=== PATIENT | male | born 1965 | race Caucasian/White ===

== ENCOUNTER → 2017-04-29 | Outpatient (CLI) | payer OTHER ==
[~2017-04-29] VITALS: Ht 203.2 cm; Wt 111.1 kg
[~2017-04-29] MED LIST: CATHETER FLUSH 10 ML SYR IV PRN
[2017-04-29 13:27] VITALS: BP 174/78
--- NOTE | 2017-04-30 07:08 | STRESS TEST ---
DATE OF SERVICE: 04/29/2017 PROCEDURE: Resting and post-exercise technetium-99M tetrofosmin SPECT CT imaging. ORDERING PHYSICIAN: Joslyn Chacon APRN CLINICAL DIAGNOSIS: Chest discomfort. Baseline images were carried out after injection of 10.94 mCi of technetium-99M tetrofosmin. Subsequently exercise was carried out on a treadmill. Raghu protocol was employed. He completed three stages approved per Raghu protocol. Heart rate response to exercise was normal. Blood pressure response to exercise was somewhat hypertensive. The test was stopped on account of shortness of breath and fatigue. At peak exercise, there was approximately 2.5 mm horizontal or downsloping ST segment depression. There was no significant arrhythmia. He attained a total of 97% of maximum predicted heart rate and exercised for a total of 7 minutes and 32 seconds in the Raghu protocol. Review of images at rest and following stress indicates a transient inferior perfusion defect. Gated images show inferior hypokinesis. Ejection fraction is calculated to be 37%. Left ventricular end diastolic volume is 172 mL. TID is absent (0.98). CONCLUSIONS: 1. This study indicates inferior ischemia. 2. Inferior hypokinesis. 3. Impairment of global left ventricular systolic function with a calculated ejection fraction of 37%. 4. Cardiomegaly Job ID: [id number] DocumentID: [id number] Dictated Date: 04/29/2017 15:09:06 [place] Vessel Pilot Date: 04/30/2017 04:26:20 Dictated By: TESSA ROD MD, MA, FACP, FACC,
== END ==
LOC: EDBD → CARD 10:42
PROVIDERS: ATTEND Nurse Practitioner Family
DX: R00.2 Palpitations (principal); R07.89 Other chest pain; I51.7 Cardiomegaly; I11.0 Hypertensive heart disease with heart failure
CPT/HCPCS: 78452; 93017; 93306

== ENCOUNTER → 2017-05-29 | Outpatient (CLI) | payer OTHER ==
[~2017-05-29] MED LIST changes: +IOHEXOL 350 MG/ML 150 ML (OMNIPAQUE 350) VIAL IV ONE; +NS 100 ML (IVPB) BAG IV ONE
[2017-05-29 08:57] LABS: ANION GAP 9 MMOL/L (5-14); BLOOD UREA NITROGEN 24 MG/DL (7-18); BUN/CREATININE RATIO 26; CALCIUM 9.2 MG/DL (8.5-10.1); CARBON DIOXIDE 27 MMOL/L (21-32); CHLORIDE 106 MMOL/L (98-107); CREATININE SERUM 0.91 MG/DL (0.60-1.30); GFR ESTIMATED > 60; GLUCOSE 130 MG/DL (70-105); POTASSIUM 4.5 MMOL/L (3.6-5.0); SODIUM 142 MMOL/L (135-145)
--- NOTE | 2017-05-29 11:15 | Diagnostic Imaging Report ---
PROCEDURE: CT angiography of the chest with contrast. TECHNIQUE: Multiple contiguous axial images were obtained through the chest after uneventful bolus administration of intravenous contrast. Reconstructed CTA MIP acquisitions were also performed. INDICATION: Chest pain. COMPARISON: There are no previous CT examinations available for comparison. The myocardial perfusion study performed on 04/29/2017 indicated inferior wall ischemia, cardiomegaly, and a cardiac ejection fraction of 37%. FINDINGS: The heart is enlarged and there are extensive coronary artery calcifications evident. The coronal images also suggest that the aortic root is dilated measuring 4.5 cm. The ascending aorta itself is not aneurysmally dilated measuring 3.6 x 3.7 cm in maximum AP and transverse diameters. The descending thoracic aorta is normal in caliber and there is no sign of a dissection. There is no defect within the pulmonary arteries to indicate a pulmonary embolus. The lungs are generally clear and well aerated. There is no sign of failure, pneumonia, or pleural effusion to suggest an acute abnormality. There is no parenchymal mass identified either. There is no mediastinal or hilar adenopathy. The thyroid gland is generally unremarkable. The bone windows show no evidence of a fracture or destructive lesion. IMPRESSION: 1. There is cardiomegaly and coronary artery disease. The aortic root is also slightly dilated but there is no aneurysmal dilatation of the ascending or descending thoracic aorta and there is no sign of an acute abnormality of the aorta. 2. No other acute cardiopulmonary abnormality is identified either. Dictated by: Dictated on workstation # [id number]
== END ==
LOC: RAD 08:21
PROVIDERS: ATTEND Nurse Practitioner Family
DX: I51.7 Cardiomegaly (principal); I25.10 Atherosclerotic heart disease of native coronary artery without angina pectoris
CPT/HCPCS: 36415; 71275; 80048

== ENCOUNTER 2017-06-03 07:47 | Day surgery (SDC) | payer OTHER ==
[~2017-06-03] VITALS: Ht 198.1 cm; Wt 110.2 kg
[2017-06-03] VITALS (12 sets, daily range): BP systolic 128–203; BP diastolic 81–98
[~2017-06-03 07:47] MED LIST changes: -CATHETER FLUSH 10 ML SYR IV PRN; +HEParin (CATH LAB) 2,000 ML IV ONE; -IOHEXOL 350 MG/ML 150 ML (OMNIPAQUE 350) VIAL IV ONE; -NS 100 ML (IVPB) BAG IV ONE; +NS IV 1000 ML 1,000 ML ONE
--- OUTSIDE RECORDS SUMMARY | 2017-06-03 07:50 | XMS REPORT ---
Author Author KAYLYNN JACKSON Organization [facility] Address [address] [place] [address] Care Team Providers Care Day Care Aide Name Role Phone KAYLYNN JACKSON Unavailable PROBLEMS Type Condition ICD9-CM Code WBL75-CU Code Onset Dates Condition Status SNOMED Code Problem Type 2 diabetes mellitus without complications E11.9 Active 970536715 Problem Benign essential hypertension I10 Active 9045847 Problem Hyperlipemia E78.5 Active 22828712 ALLERGIES Substance Reaction Event Type Date Status N.K.D.A. Unknown Non Drug Allergy Sep, Unknown SOCIAL HISTORY No smoking Hx information available PLAN OF CARE Activity Details Follow Up 6 Months Reason:DM visit VITAL SIGNS Height 78 in 2016-10-08 Weight 251.6 lbs 2016-10-08 Temperature 97.0 degrees Fahrenheit 2016-10-08 Heart Rate 68 bpm 2016-10-08 Respiratory Rate 16 2016-10-08 BMI 29.07 kg/m2 2016-10-08 Blood pressure systolic 138 mmHg 2016-10-08 Blood pressure diastolic 82 mmHg 2016-10-08 MEDICATIONS Medication Instructions Dosage Frequency Start Date End Date Duration Status MetFORMIN HCl ER 500 MG Orally 2 times a day (FOLLOW UP MARCH) 1 tablet Active Lisinopril 5 mg Orally Once a day 1 tablet 24h May, Active Tricor 48 MG Orally Once a day 1 tablet 24h Mar, Active Lovastatin 20 mg Orally Once a day 1 tablet 24h May, Active RESULTS Name Result Date Reference Range A1C (IN HOUSE) 2016-10-08 A1C IN HOUSE 6.9 4.3 - 5.6 % Previous A1c 6.7 Lot [id number] Exp date 06/2018 PROCEDURES Procedure Date Ordered Related Diagnosis Body Site GLYCATED HEMOGLOBIN TEST Oct 08, 2016 Office Visit, Est Pt., Level 3 Oct 08, 2016 IMMUNIZATIONS No Known Immunizations
--- OUTSIDE RECORDS SUMMARY | 2017-06-03 07:50 | XMS REPORT ---
Author KAYLYNN Collins [facility] eClinicalWorks Address Unknown Phone Unavailable Care Team Providers Care Hospital Mortician Name Role Phone KAYLYNN JACKSON CP Unavailable Allergies, Adverse Reactions, Alerts Substance Reaction Event Type N.K.D.A. Info Not Available Non Drug Allergy Problems Problem Type Condition Code Onset Dates Condition Status Problem Hyperlipemia E78.5 Active Problem Benign essential hypertension I10 Active Problem Type 2 diabetes mellitus without complications E11.9 Active Assessment Neck pain M54.2 Active Medications Medication Code System Code Instructions Start Date End Date Status Dosage MetFORMIN HCl ER (MOD) [facility] [address]-51 500 MG Orally 2 times a day January 1 tablet Lovastatin [facility] [address]-33 20 MG Orally Once a day Jun 02, 2014 1 tablet MetFORMIN HCl ER [facility] [id number] 500 MG TAKE ONE TABLET BY MOUTH TWICE DAILY Tricor [facility] [address]-17 48 MG Orally Once a day April 08, 2016 1 tablet Lisinopril [facility] [address]-35 5 MG Orally Once a day Jun 02, 2014 1 tablet Procedures Procedure Coding System Code Date Office Visit, Est Pt., Level 3 CPT-4 23395 Jul 06, 2016 Vital Signs Date/Time: Jul 06, 2016 Cardiac Monitoring Heart Rate 73 bpm Weight 252.6 lbs Height 78 in BMI 29.19 Index Blood Pressure Diastolic 68 mmHg Blood Pressure Systolic 154 mmHg Results No Known Results Summary Purpose eClinicalWorks Submission
--- OUTSIDE RECORDS SUMMARY | 2017-06-03 07:50 | XMS REPORT ---
Author KAYLYNN Collins [facility] eClinicalWorks Address Unknown Phone Unavailable Care Team Providers Care Inventory Transcriber Name Role Phone KAYLYNN JACKSON Unavailable Allergies No Known Allergies Problems Problem Type Condition Code Onset Dates Condition Status Problem Hyperlipemia E78.5 Active Problem Benign essential hypertension I10 Active Problem Type 2 diabetes mellitus without complications E11.9 Active Assessment Hyperlipemia E78.5 Active Medications Medication Code System Code Instructions Start Date End Date Status Dosage Tricor [facility] [address]-33 48 MG Orally Once a day April 08, 2016 1 tablet Results No Known Results Summary Purpose eClinicalWorks Submission
--- OUTSIDE RECORDS SUMMARY | 2017-06-03 07:50 | XMS REPORT ---
Author KAYLYNN Collins [facility] eClinicalWorks Address Unknown Phone Unavailable Care Team Providers Care Stock Digger Name Role Phone KAYLYNN JACKSON Unavailable Allergies No Known Allergies Problems Problem Type Condition Code Onset Dates Condition Status Problem Hyperlipemia E78.5 Active Problem Benign essential hypertension I10 Active Problem Type 2 diabetes mellitus without complications E11.9 Active Medications Medication Code System Code Instructions Start Date End Date Status Dosage Lovastatin [facility] [address]-31 20 mg Orally Once a day Jun 02, 2014 1 tablet Lisinopril [facility] [address]-33 5 mg Orally Once a day Jun 02, 2014 1 tablet Results No Known Results Summary Purpose eClinicalWorks Submission
--- OUTSIDE RECORDS SUMMARY | 2017-06-03 07:50 | XMS REPORT ---
Author KAYLYNN Collins [facility] eClinicalWorks Address Unknown Phone Unavailable Care Team Providers Care Short Filler Bunch Machine Operator Name Role Phone KAYLYNN JACKSON CP Unavailable Allergies, Adverse Reactions, Alerts Substance Reaction Event Type N.K.D.A. Info Not Available Non Drug Allergy Problems Problem Type Condition Code Onset Dates Condition Status Assessment Benign essential hypertension I10 Active Assessment Type 2 diabetes mellitus without complications E11.9 Active Assessment Hyperlipemia E78.5 Active Problem Hyperlipemia E78.5 Active Problem Benign essential hypertension I10 Active Problem Type 2 diabetes mellitus without complications E11.9 Active Problem Diabetes mellitus without mention of complication, type II or unspecified type, not stated as uncontrolled 250.00 Active Problem Overweight 278.02 Active Problem Hyperlipidemia 272.4 Active Problem Essential hypertension, benign 401.1 Active Medications Medication Code System Code Instructions Start Date End Date Status Dosage Lovastatin [facility] [address]-08 20 MG Orally Once a day Jun 02, 2014 1 tablet Lisinopril [facility] [address]-54 2.5 MG Orally Once a day Jun 02, 2014 1 tablet MetFORMIN HCl ER (MOD) [facility] [address]-83 500 MG Orally 2 times a day January 1 tablet Procedures Procedure Coding System Code Date Office Visit, Est Pt., Level 3 CPT-4 86708 Sep 19, 2015 GLYCATED HEMOGLOBIN TEST CPT-4 87951 Sep 19, 2015 Vital Signs Date/Time: Sep 19, 2015 Temperature 98.9 F Weight 259.2 lbs Height 78 in BMI 29.95 Index Blood Pressure Diastolic 90 mmHg Blood Pressure Systolic 152 mmHg Cardiac Monitoring Heart Rate 78 bpm Results Name Result Date Reference Range Unit Abnormality Flag A1C (IN HOUSE) ----A1C IN HOUSE 7.0 [id number] 4.30 - 5.6 % ----Previous A1c 6.2 [id number] ----Lot # [id number] ----Exp date [id number] Summary Purpose eClinicalWorks Submission
--- OUTSIDE RECORDS SUMMARY | 2017-06-03 07:50 | XMS REPORT ---
Author Author ANSELMO MILLS Organization eClinicalWorks Address Unknown Phone Unavailable Care Team Providers Care Straightedge Man Name Role Phone ANSELMO MILLS CP Unavailable Allergies, Adverse Reactions, Alerts Substance Reaction Event Type N.K.D.A. Info Not Available Non Drug Allergy Problems Problem Type Condition Code Onset Dates Condition Status Assessment Chronic periodontitis K05.30 Active Assessment Encounter for dental examination Z01.20 Active Problem Hyperlipemia E78.5 Active Problem Benign [...] Instructions Start Date End Date Status Dosage [facility] [address]-60 5-325 MG Orally every 6 hrs December 07, 2015 1 tablet as needed Procedures Procedure Coding System Code Date EXTRAC ERUPTED TOOTH/EXPOSED ROOT CPT-4 D7140 November 23, 2015 INTRAORL-PERIAPICAL 1 FILM 81178 CPT-4 D0220 December 07, 2015 Vital Signs Date/Time: December 07, 2015 Blood Pressure Diastolic 83 mmHg Blood Pressure Systolic 162 mmHg Results No Known Results Summary Purpose eClinicalWorks Submission
[2017-06-03] MEDS ORDERED: NS IV 1000 ML 1,000 ML IV SCH ×2 (08:00→10:13)
[2017-06-03 08:21] LABS: MEAN PLATELET VOLUME 9.5 FL (7.4-10.4); RED BLOOD COUNT 4.78 10^6/uL (4.35-5.85); RED CELL DISTRIBUTION WIDTH 12.7 % (10.0-14.5); WHITE BLOOD COUNT 7.1 10^3/uL (4.3-11.0)
[2017-06-03] MEDS ORDERED: MIDAZOLAM 5 MG/5 ML (VERSED) VIAL ONE (08:25)
[2017-06-03] MEDS ORDERED: fentaNYL INJECTION 100 MCG/2 ML AMP ONE (08:25)
[2017-06-03] MEDS ORDERED: diphenhydrAMINE 50 MG/ML INJ (BENADRYL) ONE (08:26)
[2017-06-03] MEDS ORDERED: SELE200T11 PO (08:27)
[2017-06-03] MEDS ORDERED: METO-387 PO (08:27)
[2017-06-03] MEDS ORDERED: ASPI-983 PO (08:27)
[2017-06-03] MEDS ORDERED: METF-478 PO (08:27)
[2017-06-03] MEDS ORDERED: LISI10TA2 PO (08:27)
[2017-06-03] MEDS ORDERED: MAGN250T13 PO (08:27)
[2017-06-03] MEDS ORDERED: ACET325T38 PO (08:30)
[2017-06-03] MEDS ORDERED: IBUP-30 PO (08:30)
[2017-06-03 08:31] LABS: PROTHROMBIN TIME PATIENT 12.9 SEC (12.2-14.7)
[2017-06-03 08:40] LABS: ALANINE AMINOTRANSFERASE 29 U/L (0-55); ALBUMIN 4.7 GM/DL (3.2-4.5); ANION GAP 12 MMOL/L (5-14); ASPARTATE AMINO TRANSFERASE 19 U/L (5-34); BLOOD UREA NITROGEN 15 MG/DL (7-18); BUN/CREATININE RATIO 18; CALCIUM 9.2 MG/DL (8.5-10.1); CARBON DIOXIDE 25 MMOL/L (21-32); CHLORIDE 104 MMOL/L (98-107); CHOLESTEROL 159 MG/DL (< 200); CREATININE SERUM 0.85 MG/DL (0.60-1.30); DIRECT LDL 88 MG/DL (1-129); GFR ESTIMATED > 60; GLUCOSE 130 MG/DL (70-105); POTASSIUM 3.8 MMOL/L (3.6-5.0); SODIUM 141 MMOL/L (135-145); TRIGLYCERIDES 211 MG/DL (<150); VLDL CHOLESTEROL 42 MG/DL (5-40)
[2017-06-03] MEDS ORDERED: HEParin 1000 UNIT/ML (10ML VIAL) FOR BOLUS ONE (09:24)
[2017-06-03] MEDS ORDERED: NITROGLYCERIN DRIP 25 MG/D5W 250 ML IV ONE (09:24)
[2017-06-03] MEDS ORDERED: EPTIFIBATIDE BOLUS 20 ML IV ONE (09:26)
[2017-06-03] MEDS ORDERED: ASPIRIN 81 MG CHEW (CHILDREN'S ASA) ONE (09:58)
[2017-06-03] MEDS ORDERED: CLOPIDOGREL 300 MG (PLAVIX) TABLET PO ONE (09:58)
--- NOTE | 2017-06-03 10:13 | Cardiac Procedure Note-CS/ASA ---
Pre-Procedure Note Pre-Op Procedure Note H&P Reviewed The H&P was reviewed, patient examined and no changes noted. Date H&P Reviewed: Jun 03, 2017 Time H&P Reviewed: 09:00 Conscious Sedation Pre-Proced Time Reviewed: 09:00 ASA Class: 3 Airway Mallampati Classification: ([place] appropriate class) I. II. III, IV Lungs Heart ASA score ASA 1: a normal healthy patient ASA 2: a patient with a mild systemic disease (mid diabetes, controlled hypertension, obesity ASA 3: a patient with a severe systemic disease that limits activity (angina , COPD, prior Myocardial infarction) ASA 4: a patient with an incapacitating disease that is a constant threat to life (CHF, renal failure) ASA 5: a moribund patient not expected to survive 24 hrs. (ruptured aneurysm) ASA 6: a declared brain patient whose organs are being harvested. For emergent operations, add the letter E after the classification Grade 2 Sedation Plan: Analgesia, Amnesia, Plan communicated to team members, Discussed options with patient/fam, Discussed risks with patient/fam Note The patient is an appropriate candidate to undergo the planned procedure, sedation, and anesthesia. The patient immediately re-assessed prior to indication. TESSA ROD MD FACP FAC CCDS Jun 03, 2017 10:13
[2017-06-03] MEDS ORDERED: ACETAMINOPHEN 325 MG TABLET/CAPLET (TYLENOL) PO PRN (10:15)
[2017-06-03] MEDS ORDERED: TEMAZEPAM 15 MG (RESTORIL) CAP PO PRN (10:15)
[2017-06-03] MEDS ORDERED: PATIENT MAY USE OWN MEDS, ALL PO SCH (10:15)
--- NOTE | 2017-06-03 10:57 | CARDIAC CATHETERIZATION ---
DATE OF SERVICE: 06/03/2017 CARDIAC CATHETERIZATION AND CORONARY INTERVENTION The patient is a 52-year-old man with multiple coronary artery disease risk factors, chest discomfort, and an abnormal myocardial perfusion imaging study recently which showed inferior ischemia. Cardiac catheterization was carried out today after having obtained informed consent for cardiac catheterization and ad hoc coronary intervention. PROCEDURE: He was brought to the cardiac catheterization laboratory in a fasting state. Right groin was prepared and draped in the usual sterile fashion. Lidocaine 1% was used for local anesthesia. Modified Seldinger technique was used to advance a 5-[place] sheath in the right femoral artery. Angiography of the right femoral artery was carried out through the sheath. Catheters were then advanced for cardiac catheterization over a wire. There was difficulty with wire advancement in the lower abdominal aorta. Once we were able to advance the wire, all catheter exchanges were carried out over an exchange length wire. We carried out right coronary angiography using a JR4 catheter, left coronary angiography using a JL5 catheter and left heart catheterization using a 5-[place] pigtail catheter. The pigtail catheter was then pulled back to the aortic root and aortic root angiography was performed because there appeared to be aortic root enlargement based on coronary angiography. The pigtail was then pulled back to the level of L1 and abdominal aortic angiography was performed because abdominal aortic aneurysm has been suspected due to difficulty with wire advancement initially. The pigtail catheter was then removed. PERCUTANEOUS INTERVENTION TO THE LEFT CIRCUMFLEX ARTERY: Following completion of the diagnostic procedure, percutaneous intervention was carried out to the left circumflex artery which had a long mid vessel lesion, which was up to 90%. We exchanged the sheath over a wire for a 6-[place] sheath. All catheter exchanges and sheath exchanges were carried out over an exchange length wire. We tried multiple guide catheters. Eventually, we used a 6-[place] JL5 catheter to engage the left coronary artery. We advanced a BMW wire across the lesion in the mid left circumflex artery with moderate difficulty and the wire was placed in the distal vessel. Balloon angioplasty was carried out using Emerge 3.0 mm x 20 mm balloon. This reduced the stenosis from 90% to approximately 60%. The balloon was removed. We then advanced an Alpine Xience 3.5 x 38 mm stent. This was carefully positioned to cover the entire lesion and the stent was deployed at 11 atmospheres. Full stent expansion was achieved. Subsequent angiography revealed 0% residual stenosis at the previous site of up to 90% stenosis. Flow throughout the vessel was normal. He tolerated the procedure well. Angioplasty equipment was then removed. Mynx was used to achieve hemostasis following sheath removal. The patient received a double bolus of Integrilin and 6000 units of intravenous heparin during the interventional procedure. HEMODYNAMICS: Left ventricular end-diastolic pressure following coronary angiography was 15 mmHg. There was no significant pressure gradient on pullback across the aortic valve. Ascending aortic pressure was 149/80 with a mean of 110 mmHg. CORONARY ANGIOGRAPHY: Diffuse coronary calcification is present. Left main coronary artery does not exhibit significant obstructive disease. Left anterior descending artery has 30% ostial stenosis and 50% stenosis in its mid vessel at a bifurcation site of the left anterior descending artery with the second diagonal branch. The left circumflex artery has 30% ostial stenosis and has a long stenosis in its mid portion of up to 90%. Prior to this 90% stenosis, successful intervention was carried out. Following deployment of Alpine Xience 3.5 x 38 mm stent, there is no significant residual stenosis and flow throughout the vessel is normal. The right coronary artery is occluded in the distal portion prior to the origin of the posterior descending artery. The distal right coronary artery receives extensive collaterals from the left coronary system. LEFT VENTRICULAR ANGIOGRAPHY: Left ventricular angiography was carried out in the right anterior oblique projection. Left ventricular systolic function is mildly impaired. There is posterobasal hypokinesis. Left ventricular ejection fraction is 45-50%. There does not appear to be significant mitral regurgitation. AORTIC ROOT ANGIOGRAPHY: Aortic root angiography indicated moderate enlargement of the aortic root. There was no significant aortic regurgitation. ABDOMINAL AORTIC ANGIOGRAPHY: Abdominal aortic angiography indicated atherosclerosis and calcification of the abdominal aorta. There is a moderate to large infrarenal abdominal aortic aneurysm. The renal arteries are intact and do not exhibit significant stenosis. CONCLUSIONS: 1. Coronary artery disease as outlined above. This consists of complete distal occlusion of the right coronary artery and severe mid vessel stenosis of the left circumflex. Successful percutaneous intervention was carried out to the mid left circumflex and, following deployment of Alpine Xience 3.5 x 38 mm stent, there is no significant residual stenosis. The left anterior descending artery has moderate mid vessel disease. The right coronary artery is collateralized from the left coronary system. 2. Mild impairment of systolic function with posterobasal hypokinesis and left ventricular ejection fraction 45-50%. 3. No significant mitral regurgitation. 4. Mild elevation left ventricular end-diastolic pressure. 5. Moderate enlargement of the aortic root. 6. Moderate to large infrarenal abdominal aortic aneurysm. DISCUSSION AND RECOMMENDATIONS: Risk factor modification has been reviewed. Avoidance of tobacco is advised. Compliance with medications is advised. He is being hospitalized after today's procedure. We will make a referral to peripheral vascular surgery for abdominal aortic aneurysm repair as an outpatient. Job ID: [id number] DocumentID: [id number] Dictated Date: 06/03/2017 10:25:13 Welfare Service Aide Date: 06/03/2017 10:56:52 Dictated By: TESSA ROD MD, MA, FACP, FACC, MTDD
[2017-06-03] MEDS: inSUlin (REGULAR) HUMAN 1 UNIT/0.01 ML (CHARGE PER UNIT) SC SCH ×3 (11:20→21:45)
[2017-06-03] MEDS ORDERED: SELENOMETHIONINE 200 MCG PO SCH (21:00)
[2017-06-03] MEDS ORDERED: NON-FORMULARY MEDICATION 1 EA EA (Magnesium Oxide (Magnesium) 500 MG) PO SCH (21:00)
[2017-06-03] MEDS ORDERED: MAGNESIUM 250 MG TAB PO SCH (21:00)
[2017-06-03] MEDS ORDERED: MAGNESIUM OXIDE (MAG-OX)400 MG TAB PO SCH (21:00)
[2017-06-03] MEDS ORDERED: SELENIUM 200 MCG PO SCH (21:00)
[2017-06-04 00:56] VITALS: BP 150/76
[2017-06-04 04:12] VITALS: BP 145/78
[2017-06-04 06:09] LABS: MEAN PLATELET VOLUME 9.7 FL (7.4-10.4); RED BLOOD COUNT 4.45 10^6/uL (4.35-5.85); RED CELL DISTRIBUTION WIDTH 12.4 % (10.0-14.5); WHITE BLOOD COUNT 8.3 10^3/uL (4.3-11.0)
[2017-06-04 06:24] LABS: ANION GAP 10 MMOL/L (5-14); BLOOD UREA NITROGEN 14 MG/DL (7-18); BUN/CREATININE RATIO 18; CARBON DIOXIDE 26 MMOL/L (21-32); CHLORIDE 103 MMOL/L (98-107); CREATININE SERUM 0.78 MG/DL (0.60-1.30); GFR ESTIMATED > 60; GLUCOSE 127 MG/DL (70-105); SODIUM 139 MMOL/L (135-145)
[2017-06-04] MEDS: inSUlin (REGULAR) HUMAN 1 UNIT/0.01 ML (CHARGE PER UNIT) SC SCH (06:26)
[2017-06-04 08:00] VITALS: BP 173/88
[2017-06-04] MEDS ORDERED: CLOPIDOGREL 75 MG (PLAVIX) TABLET PO SCH (09:00)
[2017-06-04] MEDS ORDERED: ASPIRIN E.C. 81 MG (ECOTRIN) TAB PO SCH (09:00)
[2017-06-04] MEDS ORDERED: lisINopril 10 MG (PRINIVIL) TAB PO SCH ×2 (09:00)
--- NOTE | 2017-06-04 09:18 | Progress Note-Cardiology ---
Cardiology SOAP Progress Note Subjective: No cp or palp or syncope or shortness of breath. Mild groin bruising; not much discomfort Objective: I&O/Vital Signs Vital Sign - Last 12Hours 06/04/17 06/04/17 06/04/17 00:56 01:00 04:12 Temp 98.0 98.0 Pulse 60 72 58 Resp 18 18 B/P (MAP) 150/76 145/78 Pulse Ox 97 96 O2 Delivery Room Air Room Air Weight (Pounds): 243 Weight (Ounces): 0.0 Weight (Calculated Kilograms): 110.857942 Groin site without hematoma: Yes Bruising: mild bruising Constitutional: AAO x 3 Respiratory: No accessory muscle use, lungs clear to percussion, lungs clear to auscultation Cardiovascular: regular rate-rhythm, S1 and S2, systolic murmur (faint MARQUEZ at card base) Gastrointestional: No tender, soft, No guarding, No rebound, audible bowel sounds Extremities: No clubbing, No cyanosis, No significant edema Neurologic/Psychiatric: oriented x 3, grossly intact, power is 5/5 both on sides Skin: No rash on exposed areas, No ulcerations on exposed areas Results/Procedures: Labs Laboratory Tests 06/03/17 16:47: Glucometer 117H 06/03/17 21:37: Glucometer 143H 06/04/17 05:32: White Blood Count 8.3, Red Blood Count 4.45, Hemoglobin 13.4, Hematocrit 39L, Mean Corpuscular Volume 87, Mean Corpuscular Hemoglobin 30, Mean Corpuscular Hemoglobin Concent 35, Red Cell Distribution Width 12.4, Platelet Count 215, Mean Platelet Volume 9.7, Sodium Level 139, Potassium Level 4.0, Chloride Level 103, Carbon Dioxide Level 26, Anion Gap 10, Blood Urea Nitrogen 14, Creatinine 0.78, Estimat Glomerular Filtration Rate > 60, BUN/Creatinine Ratio 18, Glucose Level 127H, Calcium Level 9.0 Laboratory Tests 06/03/17 08:10 06/04/17 05:32 A/P: Assessment: CAD: Cardiac cath of 06/03/17 showed complete distal occlusion of the right coronary artery and severe mid vessel stenosis of the left circumflex. Successful percutaneous intervention was carried out to the mid left circumflex and, following deployment of Alpine Xience 3.5 x 38 mm stent, there is no significant residual stenosis. The left anterior descending artery has moderate mid vessel disease. The right coronary artery is collateralized from the left coronary system. 2. Mild impairment of systolic function with posterobasal hypokinesis and left ventricular ejection fraction 45-50%. No significant mitral regurgitation. Mild elevation left ventricular end-diastolic pressure. PAD. Aortic angiography of 06/03/17 showed moderate to large infrarenal abdominal aortic aneurysm and moderate enlargement of the aortic root Hypertension Hyperlipidemia DM II Ischemic cm: LVEF 37% on MPI of 04/29/17 and 45-50% on card cath of 06/03/17 Family history of Marfan's syndrome (4 children) Plan: * I had a detailed discussion with him and his and explained our findings and treatments undertaken and further treatment and f/u plan * I have spoken with Dr Urbano at [facility] regarding endograft repair of his AAA. We have asked for an early apptt * We have advised continuing therapy with beta-josie and LOUISA-inhib and aspirin * Metformin is to be held for another 36 hours * Statins and clopidogrel have been added * We discussed the rationale and potential side effects of meds * We have advised compliance with meds and to keep us aware of any changes in his symptomatic status TESSA ROD MD [facility] CCDS Jun 04, 2017 09:18
[2017-06-04] MEDS ORDERED: ASPI-999 PO (09:28)
[2017-06-04] MEDS ORDERED: METO-370 PO (09:28)
[2017-06-04] MEDS ORDERED: LISI-552 PO (09:28)
[2017-06-04] MEDS ORDERED: ATOR40TA70 PO (09:29)
[2017-06-04] MEDS ORDERED: CLOP75TA69 PO (09:29)
--- NOTE | 2017-06-04 09:31 | Discharge Inst-Post CATH ---
Discharge Inst-CATH Post Cardiac Cath D/C Inst Follow Up/Plan F/u with Dr Alegre in 1-[address] Urbano at [facility] for AAA repair CARDIAC CATH DISCHARGE INSTRUCTIONS *Hold Metformin for 48 hours post heart cath. ACTIVITY * Go Home directly and rest. * Limit activity of the leg (or wrist if it was used) for 7 days including aerobics, swimming, jogging, bicycling, etc. * Restrict stair-climbing for 7 days if possible, if not, climb up with your non -cath leg, then bring together on the same step. * Avoid lifting, pushing, pulling or excessive movement of the affected extremity for 7 days. * Customary sexual activity may be resumed after 2 days-use caution not to use a position that strains or causes pain to the affected extremity. * No driving for 24 hours. * NO SMOKING. * Avoid straining for bowel movements for 7 days. * Gentle walking on level ground is allowed. * Returning to work will depend on the type of procedure and the results. Your doctor will discuss this with you. CALL YOUR DOCTOR FOR ANY OF THE FOLLOWING: *If bleeding from the puncture site occurs- Apply gentle pressure to site with clean cloth and call your doctor or EMS. * If a knot or lump forms under the skin, increases in size, or causes pain. * If bruising appears to be worsening or moving further down your leg instead of disappearing. * Temperature above 101 F. CARE OF YOUR GROIN INCISION; * Bruising or purple discoloration of the skin near the puncture site is common. * You may shower only, no bathtub bathing for 5 days. Be careful to avoid slipping as your leg may feel stiff. * If a closure device was used on your femoral artery, please see the attached guide regarding care of the device and your leg. * REMOVE the dressing from your groin the next day after your procedure in the shower. CARE OF YOUR WRIST INCISION; * Bruising or purple discoloration of the skin near the puncture site is common. * You may shower. * DO NOT submerge wrist. * Remove dressing in 24 hours. TESSA ALEGRE MD [facility] CCDS Jun 04, 2017 09:31
--- NOTE | 2017-06-04 09:32 | Discharge Inst-Cardiology ---
Discharge Inst-Cardiac Discharge Medications New Medications: Aspirin (Aspirin) 81 Mg Tab.chew 81 MG PO DAILY for 90 Days, #90 TAB 3 Refills Atorvastatin Calcium (Atorvastatin Calcium) 40 Mg Tablet 40 MG PO HS, #90 TAB 3 Refills Clopidogrel Bisulfate (Plavix) 75 Mg Tablet 75 MG PO DAILY, #90 TAB 3 Refills Lisinopril (Lisinopril) 20 Mg Tablet 20 MG PO DAILY, #90 TAB 3 Refills Metoprolol Succinate (Metoprolol Succinate) 50 Mg Tab.er.24h 50 MG PO DAILY, #90 TAB 3 Refills Continued Medications: Acetaminophen (Tylenol) 325 Mg Tablet 650 MG PO Q6H PRN for PAIN-MILD, TAB Magnesium Oxide (Magnesium) 250 Mg Tablet 500 MG PO HS, TAB TAKES 2 (250MG) TABLETS Metformin HCl (Metformin HCl ER) 500 Mg Tab.er.24 500 MG PO BID, TAB Selenomethionine (Selenium) 200 Mcg Tablet 200 MCG PO HS, TAB Discontinued Medications: Aspirin (Aspirin EC) 81 Mg Tablet.dr 81 MG PO HS, TAB Ibuprofen (Advil) 200 Mg Tablet 400-600 MG PO Q6H PRN for PAIN-MILD, TAB Lisinopril (Lisinopril) 10 Mg Tablet 10 MG PO DAILY, TAB Metoprolol Succinate (Metoprolol Succinate) 25 Mg Tab.er.24h 25 MG PO DAILY, TAB Patient Instructions Patient Instructions: Hold METFORMIN until tomorrow evening TESSA ROD MD FACP FAC CCDS Jun 04, 2017 09:32
[2017-06-04 10:49] VITALS: BP 173/88
== END 2017-06-04 10:30 ==
LOC: CATH 07:47 → ICU 10:30 → CATH 10:30
PROVIDERS: ATTEND Internal Medicine Cardiovascular Disease
DX: I25.10 Atherosclerotic heart disease of native coronary artery without angina pectoris (principal); I25.84 Coronary atherosclerosis due to calcified coronary lesion; I25.82 Chronic total occlusion of coronary artery; I70.0 Atherosclerosis of aorta; I71.4 Abdominal aortic aneurysm, without rupture; E11.9 Type 2 diabetes mellitus without complications; I10 Essential (primary) hypertension; E78.5 Hyperlipidemia, unspecified; Z79.84 Long term (current) use of oral hypoglycemic drugs; Z79.899 Other long term (current) drug therapy
CPT/HCPCS: 36415; 75625; 80048; 80053; 80061; 82962; 85027; 85610; 85730; 87081; 93005; 93458; 93567

== ENCOUNTER → 2017-08-04 | Outpatient (CLI) | payer OTHER ==
[~2017-08-04] MED LIST changes: +ACET325T38 PO; +ASPI-983 PO; +ASPI-999 PO; +ATOR40TA70 PO; +CATHETER FLUSH 10 ML SYR IV PRN; +CLOP75TA69 PO; -HEParin (CATH LAB) 2,000 ML IV ONE; +IBUP-30 PO; +IOHEXOL 350 MG/ML 100 ML (OMNIPAQUE 350) VIAL IV ONE; +LISI-552 PO; +LISI10TA2 PO; +MAGN250T13 PO; +METF-478 PO; +METO-270 PO; +METO-272 PO; +NS 100 ML (IVPB) BAG IV ONE; -NS IV 1000 ML 1,000 ML ONE; +SELE200T11 PO
--- NOTE | 2017-08-04 12:13 | Diagnostic Imaging Report ---
PROCEDURE: CT angiography of the abdomen with and without contrast. TECHNIQUE: Multiple contiguous axial images were obtained through the abdomen and pelvis after administration of intravenous contrast. MIP reconstructions were made. INDICATION: Abdominal aortic aneurysm followup after repair. 80 mL of Omnipaque 350 is administered intravenously. FINDINGS: The lung bases appear clear. The liver, the gallbladder, the spleen, the adrenals, and the pancreas appear unremarkable. The kidneys have symmetric enhancement and contrast excretion. No hydronephrosis. There are two renal arteries in the right side which appear patent. The left side demonstrates a main renal artery and two accessory renal arteries, all appear patent. The SMA demonstrates a 40% proximal stenosis from a soft plaque. There is ectasia of the mid SMA with maximum caliber of the vessel of 1.2 cm. The celiac trunk is patent. There is an abdominal aortic aneurysm with maximum caliber of 5.4 cm. No prior studies are available for comparison. There is an endovascular repair with an aortobiiliac bifurcating graft seen. There is contrast opacification of the upper aspect of the aneurysm sac which is close to the location of the DIOGENES which may suggest a type II endoleak. There is suggestion of moderate stenosis in the right iliac limb of the graft. The unenhanced phase demonstrates no kidney stones. No para-aortic significantly enlarged lymph nodes or masses seen. The osseous structures demonstrate mild degenerative changes in the lumbar spine. IMPRESSION: 1. A 5.4 cm infrarenal abdominal aortic aneurysm with endovascular repair using a bifurcating aortoiliac stent graft. 2. There is an endoleak along the upper aspect of the aneurysm sac adjacent to the location of the DIOGENES, which may suggest a type II endoleak. 3. Suggestion of moderate stenosis in the lumen of the right iliac limb of the graft. Dictated by: Dictated on workstation # [id number]
== END ==
LOC: RAD 09:03
PROVIDERS: ATTEND Nurse Practitioner
DX: I71.4 Abdominal aortic aneurysm, without rupture (principal); Z95.828 Presence of other vascular implants and grafts; Z98.890 Other specified postprocedural states
CPT/HCPCS: 74175

== ENCOUNTER → 2017-12-15 | Outpatient (CLI) | payer SELFPAY ==
[~2017-12-15] MED LIST changes: -CATHETER FLUSH 10 ML SYR IV PRN; -IOHEXOL 350 MG/ML 100 ML (OMNIPAQUE 350) VIAL IV ONE; -METO-270 PO; -METO-272 PO; +METO-370 PO; +METO-387 PO; -NS 100 ML (IVPB) BAG IV ONE
== END ==
LOC: CARD 09:50
PROVIDERS: ATTEND Nurse Practitioner Family
DX: I25.5 Ischemic cardiomyopathy (principal); I08.0 Rheumatic disorders of both mitral and aortic valves
CPT/HCPCS: 93306

== ENCOUNTER → 2018-01-26 | Outpatient (CLI) | payer OTHER ==
[~2018-01-26] MED LIST changes: +CATHETER FLUSH 10 ML SYR IV PRN; +IOHEXOL 350 MG/ML 100 ML (OMNIPAQUE 350) VIAL IV ONE; +NS 250 ML (IVPB) BAG IV ONE
[2018-01-26 09:47] LABS: CREATININE SERUM 0.81 MG/DL (0.60-1.30); GFR ESTIMATED > 60
--- NOTE | 2018-01-26 12:54 | Diagnostic Imaging Report ---
PROCEDURE: CT angiography of the abdomen with and without contrast. TECHNIQUE: Multiple contiguous axial images were obtained through the abdomen and pelvis after administration of intravenous contrast. MIP reconstructions were made. INDICATION: Aortic stent graft. FINDINGS: The previous CTA abdomen exam of 08/04/2017 noted an infrarenal aneurysm of the abdominal aorta with an aortic stent graft in place. There was a small endoleak along the anterior aspect of the graft. On this exam, the graft is again evident. The graft is stable in position, and the graft is patent. The small endoleak noted on the prior exam is still evident although not nearly as conspicuous as on the prior study. The [place] aneurysm of the aorta now measures 5.0 x 5.5 cm in maximum transverse and AP diameters as opposed to 4.9 x 5.4 CM on the prior study. There is no acute abnormality of the aorta. The previous exam also suggested moderate stenosis of the origin of the right iliac limb of the graft. That finding is again evident on today's study and does not seem to have changed significantly. The left iliac limb also seems stable. The remainder of the abdomen is stable when compared to the prior exam. No new abnormality has developed. The liver is mildly enlarged measuring 20.8 cm in maximum length. There is no focal mass involving the liver. The spleen, pancreas, adrenals, gallbladder, inferior vena cava, and kidneys show no sign of an acute abnormality. The nonobstructive calculi within the kidneys seen on the prior study are not well visualized on this exam. The stomach is not well distended and consequently difficult to assess. The lung bases are clear. The bone windows show no evidence for a fracture or for a destructive lesion. IMPRESSION: 1. The aortic stent graft seen on the prior exam remains in good position. The graft is patent. The small endoleak along the anterior aspect of the graft seen previously is again visualized, although the endoleak does not seem nearly as conspicuous as on the prior exam. There is also persistent narrowing of the right common iliac limb. There is no acute abnormality of the aorta. 2. The overall appearance of the abdomen has not changed significantly since the prior exam as well. There is no acute abnormality identified.. Dictated by: Dictated on workstation # [id number]
== END ==
LOC: RAD 09:10
PROVIDERS: ATTEND Nurse Practitioner
DX: I71.4 Abdominal aortic aneurysm, without rupture (principal); Z95.828 Presence of other vascular implants and grafts
CPT/HCPCS: 36415; 74175; 82565; 84520

== ENCOUNTER → 2018-08-25 | Outpatient (CLI) | payer OTHER ==
[~2018-08-25] MED LIST changes: -CATHETER FLUSH 10 ML SYR IV PRN; +RECEIVED CONTRAST (Hold Metformin) IV SCH
--- NOTE | 2018-08-25 12:56 | Diagnostic Imaging Report ---
INDICATION: Abdominal aortic aneurysm and stent graft. COMPARISON: 01/26/2018. TECHNIQUE: Pre-arterial phase dynamic and delayed portovenous phase postcontrast enhanced abdominal/pelvic CT was performed with 3D reconstructions. The comparison study was performed in a similar fashion. FINDINGS: A patent bifurcated stent graft is in stable alignment. The infrarenal aneurysmal sac peripherally calcified measures 5.4 x 5.1 cm today, previously 5.5 x 5.0 cm, unchanged. There is no evidence for endoleak and no aneurysmal sac rupture. No blake-sac inflammatory process. There are no findings of end organ ischemia. There is no ascites, abscess, hematoma, or fluid collection. No bowel, biliary, or urinary tract obstruction. No adenopathy or mass. The solid and hollow viscera are nonacute and stable. IMPRESSION: Patent stent graft device with no endoleak or aneurysmal rupture. Stable sac size. No adverse development or acute finding. Dictated by: Dictated on workstation # [id number]
== END ==
LOC: RAD 09:39
PROVIDERS: ATTEND Thoracic Surgery (Cardiothoracic Vascular Surgery)
DX: I71.4 Abdominal aortic aneurysm, without rupture (principal); Z95.828 Presence of other vascular implants and grafts
CPT/HCPCS: 74174

== ENCOUNTER → 2019-08-30 | Outpatient (CLI) | payer SELFPAY ==
[~2019-08-30] MED LIST changes: +HOLD METFORMIN - RECEIVED CONTRAST 20 ML VIAL IV SCH; -METO-370 PO; -METO-387 PO; +METO50TA7 PO; +MTP25TSR PO; +NS 100 ML (IVPB) BAG IV ONE; -NS 250 ML (IVPB) BAG IV ONE; -RECEIVED CONTRAST (Hold Metformin) IV SCH
--- NOTE | 2019-08-30 12:47 | Diagnostic Imaging Report ---
EXAMINATION: CT angiography of the abdomen. TECHNIQUE: After intravenous administration of contrast, thin section axial CT angiography of the abdomen and were obtained. 3D MIP reformats were provided. All CT scans use one or more of the following dose optimizing techniques: automated exposure control, MA and/or KvP adjustment based on a patient size and exam type, or iterative reconstruction. HISTORY: Abdominal aortic aneurysm COMPARISON: 08/25/2018 FINDINGS: There are postsurgical changes of endovascular repair of abdominal aortic aneurysm. The maximal size of the excluded sac is 5.7 x 4.2 cm. This is unchanged from prior exam. The proximal attachment site is just below the renal arteries and the distal attachment sites are in the common iliac arteries. There is a blush of contrast at the proximal end of the stent graft within the excluded aneurysm sac (series 3, image 88). This is near the origin of the inferior mesenteric artery which is opacified by contrast but arises from the excluded sac. Findings suggestive of a type II endoleak arising from the inferior mesenteric artery. Limited views of the lower thorax are unremarkable. The liver is normal without focal lesion. There is no biliary ductal dilation. Gallbladder is normal. Pancreas is normal. Spleen is normal. Adrenal glands are normal. The kidneys are normal. There is no hydronephrosis. Visualized bowel is normal in caliber without obstruction or inflammation. No free fluid or air. No abdominal lymphadenopathy. There are no suspicious osseus lesions. IMPRESSION: 1. Stable size of the excluded aneurysm sac status post endovascular repair of the abdominal aorta with a new blush of contrast near the origin of the inferior mesenteric artery suggestive of a type II endoleak from this vessel. Dictated by: Dictated on workstation # [id number]
== END ==
LOC: RAD 09:38
PROVIDERS: ATTEND Nurse Practitioner
DX: I71.4 Abdominal aortic aneurysm, without rupture (principal)
CPT/HCPCS: 36415; 74175; 82565

== ENCOUNTER → 2019-11-02 | Outpatient (CLI) | payer SELFPAY ==
[~2019-11-02] VITALS: Ht 197 cm; Wt 108.0 kg
[~2019-11-02] MED LIST changes: -HOLD METFORMIN - RECEIVED CONTRAST 20 ML VIAL IV SCH; -IOHEXOL 350 MG/ML 100 ML (OMNIPAQUE 350) VIAL IV ONE; -NS 100 ML (IVPB) BAG IV ONE; +REGADENOSON 0.4 MG/5 ML SYR (LEXISCAN) IV ONE
[2019-11-02] MEDS: CATHETER FLUSH 10 ML SYR IV PRN ×2 (11:20→12:59)
[2019-11-02 12:58] VITALS: BP 149/88
--- NOTE | 2019-11-02 15:18 | Diagnostic Imaging Report ---
PROCEDURE: US carotid duplex, bilateral. TECHNIQUE: Multiple real-time grayscale images were obtained over the carotid arteries in various projections, bilaterally. Additional spectral analysis and color Doppler duplex images were also obtained. INDICATION: Diabetes and hypertension. Parameters based on the consensus panel Patel-Scale and Doppler ultrasound criteria published July 2003, Radiology, Volume 229. DOPPLER (peak systolic velocity M/S Right Left CCA .74 .82 ICA Proximal .78 .66 ICA Mid .91 .77 ICA Distal .97 .82 RATIO 1.3 1.0 ECA .95 .62 VERT .58 .56 FINDINGS: There are no focally elevated velocities in either internal carotid artery. The ICA/CCA ratios are within normal limits, bilaterally. There is antegrade flow in the vertebral arteries, bilaterally. Grayscale images demonstrate minimal carotid plaque, bilaterally. IMPRESSION: Minimal bilateral carotid plaque however spectral analysis shows no evidence of a hemodynamically significant stenosis in either internal carotid artery. Dictated by: Dictated on workstation # [id number]
== END ==
LOC: CARD 10:27
PROVIDERS: ATTEND Nurse Practitioner Family
DX: I08.0 Rheumatic disorders of both mitral and aortic valves (principal); I11.9 Hypertensive heart disease without heart failure; E11.9 Type 2 diabetes mellitus without complications; I71.3 Abdominal aortic aneurysm, ruptured
CPT/HCPCS: 78452; 93017; 93306; 93880

== ENCOUNTER 2019-11-23 08:16 | Day surgery (SDC) | payer SELFPAY ==
[2019-11-23] VITALS (9 sets, daily range): BP systolic 106–159; BP diastolic 69–90
[~2019-11-23] VITALS: Ht 196 cm; Wt 113.0 kg
[~2019-11-23 08:16] MED LIST changes: +HEParin (CATH LAB) 2,000 ML IV ONE; +LIDOCAINE 1% INJ 20 ML 20 ML VIAL ONE; +NS IV 1000 ML 1,000 ML ONE; -REGADENOSON 0.4 MG/5 ML SYR (LEXISCAN) IV ONE
[2019-11-23] MEDS ORDERED: NS IV 1000 ML 1,000 ML IV SCH ×2 (08:30→11:28)
[2019-11-23 08:51] LABS: HEMOGLOBIN 14.2 G/DL (13.3-17.7); MEAN PLATELET VOLUME 8.9 FL (7.4-10.4); RED CELL DISTRIBUTION WIDTH 12.7 % (10.0-14.5); WHITE BLOOD COUNT 8.3 10^3/uL (4.3-11.0)
[2019-11-23] MEDS ORDERED: ASPI-983 PO (08:52)
[2019-11-23] MEDS ORDERED: FENO54TA PO (08:52)
[2019-11-23] MEDS ORDERED: METO50TA7 PO (08:52)
[2019-11-23] MEDS ORDERED: LISI1TAB25 PO (08:52)
[2019-11-23] MEDS ORDERED: CHOL200078 PO (08:55)
[2019-11-23] MEDS ORDERED: MELA5TAB21 PO (08:55)
[2019-11-23 09:09] LABS: PROTHROMBIN TIME PATIENT 13.1 SEC (12.2-14.7)
[2019-11-23 09:18] LABS: ALANINE AMINOTRANSFERASE 28 U/L (0-55); ALKALINE PHOSPHATASE 63 U/L (40-136); BILIRUBIN,TOTAL 0.9 MG/DL (0.1-1.0); BUN/CREATININE RATIO 16; CALCIUM 10.1 MG/DL (8.5-10.1); CARBON DIOXIDE 27 MMOL/L (21-32); CHLORIDE 103 MMOL/L (98-107); CHOLESTEROL 229 MG/DL (< 200); CREATININE SERUM 0.95 MG/DL (0.60-1.30); GFR ESTIMATED > 60; GLUCOSE 132 MG/DL (70-105); HDL CHOLESTEROL 35 MG/DL (40-60); POTASSIUM 3.8 MMOL/L (3.6-5.0); SODIUM 141 MMOL/L (135-145); TOTAL PROTEIN 8.4 GM/DL (6.4-8.2); TRIGLYCERIDES 286 MG/DL (<150); VLDL CHOLESTEROL 57 MG/DL (5-40)
[2019-11-23] MEDS ORDERED: fentaNYL INJECTION 100 MCG/2 ML AMP ONE (10:32)
[2019-11-23] MEDS ORDERED: MIDAZOLAM 5 MG/5 ML (VERSED) VIAL ONE (10:32)
[2019-11-23] MEDS ORDERED: HEParin 1000 UNIT/ML (10ML VIAL) FOR BOLUS ONE (11:08)
[2019-11-23] MEDS ORDERED: EPTIFIBATIDE BOLUS 0 ML IV ONE (11:09)
--- NOTE | 2019-11-23 11:28 | Cardiac Procedure Note-CS/ASA ---
Pre-Procedure Note Pre-Op Procedure Note H&P Reviewed The H&P was reviewed, patient examined and no changes noted. Date H&P Reviewed: Nov 23, 2019 Time H&P Reviewed: 10:30 Conscious Sedation Pre-Proced Time 10:30 ASA Score 3 For ASA 3 and 4: Consider anesthesia and medical clearance. Also, for patients with a history of failed moderate sedation consider anesthesia. Airway Lungs Heart ASA score ASA 1: a normal healthy patient ASA 2: a patient with a mild systemic disease (mid diabetes, controlled hypertension, obesity ASA 3: a patient with a severe systemic disease that limits activity (angina, COPD, prior Myocardial infarction) ASA 4: a patient with an incapacitating disease that is a constant threat to life (CHF, renal failure) ASA 5: a moribund patient not expected to survive 24 hrs. (ruptured aneurysm) ASA 6: a declared brain- patient whose organs are being harvested. For emergent operations, add the letter E after the classification Mallampati Classification Grade 2 Sedation Plan Analgesia, Amnesia, Plan communicated to team members, Discussed options with patient/fam, Discussed risks with patient/fam The patient is an appropriate candidate to undergo the planned procedure, sedation, and anesthesia. The patient immediately re-assessed prior to indication. TESSA ROD MD FACP FAC CCDS Nov 23, 2019 11:28
[2019-11-23] MEDS ORDERED: PATIENT MAY USE OWN MEDS, ALL PO SCH (11:30)
--- NOTE | 2019-11-23 11:36 | Discharge Inst-Post CATH ---
Discharge Inst-CATH/EP Post Cardiac Cath/EP D/C Inst Follow Up/Plan F/u with Dr Alegre in 3-4 weeks ACTIVITY * Go Home directly and rest. * Limit activity of the leg (or wrist if it was used) for 7 days including aerobics, swimming, jogging, bicycling, etc. * Restrict stair-climbing for 7 days if possible, if not, climb up with your non-cath leg, then bring together on the same step. * Avoid lifting, pushing, pulling or excessive movement of the affected extremity for 7 days. * Customary sexual activity may be resumed after 2 days-use caution not to use a position that strains or causes pain to the affected extremity. * No driving for 24 hours. * NO SMOKING. * Avoid straining for bowel movements for 7 days. * Gentle walking on level ground is allowed. * Returning to work will depend on the type of procedure and the results. Your doctor will discuss this with you. CALL YOUR DOCTOR FOR ANY OF THE FOLLOWING: *If bleeding from the puncture site occurs- Apply gentle pressure to site with clean cloth and call your doctor or EMS. * If a knot or lump forms under the skin, increases in size, or causes pain. * If bruising appears to be worsening or moving further down your leg instead of disappearing. * Temperature above 101 F. CARE OF YOUR GROIN INCISION; * Bruising or purple discoloration of the skin near the puncture site is common. * You may shower only, no bathtub bathing for 5 days. Be careful to avoid slipping as your leg may feel stiff. * If a closure device was used on your femoral artery, please see the attached guide regarding care of the device and your leg. * Leave dressing on FOR 24 hours. CARE OF YOUR WRIST INCISION; * Bruising or purple discoloration of the skin near the puncture site is common. * You may shower. * DO NOT submerge wrist. * Leave dressing on FOR 24 hours. TESSA ALEGRE MD FACP FAC CCDS Nov 23, 2019 11:36
--- NOTE | 2019-11-23 11:37 | Discharge Inst-Cardiology ---
Discharge Inst-Cardiac Discharge Medications Continued Medications: Acetaminophen (Tylenol) 325 Mg Tablet 650 MG PO Q6H PRN for PAIN-MILD, TAB Aspirin (Aspirin EC) 81 Mg Tablet.dr 81 MG PO DAILY, TAB Cholecalciferol (Vitamin D3) (Vitamin D3) 2,000 Unit Tab.chew 4000 UNIT PO DAILY, TAB Clopidogrel Bisulfate (Plavix) 75 Mg Tablet 75 MG PO DAILY, #90 TAB 3 Refills Fenofibrate (Fenofibrate) 54 Mg Tablet 54 MG PO DAILY, TAB Lisinopril/Hydrochlorothiazide (Lisinopril-Hctz 20-12.5 mg Tab) 1 Each Tablet 1 EACH PO DAILY, TAB Magnesium Oxide (Magnesium) 250 Mg Tablet 500 MG PO HS, TAB TAKES 2 (250MG) TABLETS Melatonin (Melatonin) 5 Mg Tab.ir.er 5 MG PO HS Metoprolol Succinate (Metoprolol Succinate) 50 Mg Tab.er.24h 50 MG PO DAILY, TAB Selenomethionine (Selenium) 200 Mcg Tablet 200 MCG PO HS, TAB Discontinued Medications: Metformin HCl (Metformin HCl ER) 500 Mg Tab.er.24 500 MG PO BID, TAB Patient Instructions Patient Instructions: Resume METFORMIN at previous home dose beginning on the evening of 11/25/19 TESSA ROD MD FACP [facility] Nov 23, 2019 11:37
--- NOTE | 2019-11-23 14:43 | CARDIAC CATHETERIZATION ---
DATE OF SERVICE: 11/23/2019 CARDIAC CATHETERIZATION REPORT The patient is a 54-year-old man with known coronary artery disease who has been experiencing symptoms of chest discomfort. Myocardial perfusion imaging study indicated inferolateral ischemia and inferolateral hypokinesis. Left ventricular ejection fraction of 42%. Cardiac catheterization was recommended. Informed consent was obtained. DESCRIPTION OF PROCEDURE: He was brought to the cardiac catheterization laboratory in a fasting state. Right groin was prepared and draped in the usual sterile fashion. Lidocaine 1% for local anesthesia. Modified Seldinger technique was used to advance a [place] sheath in right femoral artery, [place] JL4 catheter for left coronary angiography, [place] JR4 catheter was used for right coronary angiography, [place] pigtail catheter was used for left heart catheterization and left ventricular angiography. Angiography of the right femoral artery was carried out through the sheath. Mynx was used to achieve hemostasis. He tolerated the procedure well. HEMODYNAMICS: Left ventricular end-diastolic pressure following coronary angiography was 9 mmHg. There is no significant pressure gradient on pullback across the aortic valve. Ascending aortic pressure was 113/63 with a mean 84 mmHg. CORONARY ANGIOGRAPHY: Diffuse coronary calcification is present. There is diffuse moderate plaque of all coronary vessels. Left main coronary artery has 30% ostial stenosis. The second diagonal branch, left anterior descending artery has 50% proximal stenosis. Left circumflex artery has a widely patent stent in its mid portion that is known to be Alpine Xience 3.5 x 38 mm that was placed in 05/2017. The mid right coronary artery is chronically occluded and there is left to right collaterals. LEFT VENTRICULAR ANGIOGRAPHY: Left ventricular angiography was carried out in the right anterior oblique projection. Global left ventricular systolic function is at the lower limit of normal. Ejection fraction approximately 50%. There is basal inferior hypokinesis. CONCLUSIONS: 1. Coronary artery disease consisting of mid vessel occlusion of the right coronary with collateralization from the left, patent stent in the mid left circumflex (known to be Alpine Xience 3.5 x 38 mm), and diffuse moderate disease of the other coronary vessels. 2. Global left ventricular systolic function at the lower limit of normal. Ejection fraction approximately 50%. 3. Basal inferior hypokinesis. 4. Normal left ventricular end-diastolic pressure. DISCUSSION AND RECOMMENDATIONS: Based on results of the study, it appears appropriate to continue a conservative approach. Risk factor modification has been reviewed. Current coronary and cardiac regimen is being continued and outpatient followup is advised. Job ID: [id number] DocumentID: [id number] Dictated Date: 11/23/2019 14:32:16 Chef French Date: 11/23/2019 14:41:46 Dictated By: TESSA ROD MD, MA, FACP, FACC, MTDD
== END 2019-11-23 15:05 | disposition home or self-care (01) ==
LOC: CATH 08:16 → SDC 11:50 → CATH 15:05
PROVIDERS: ATTEND Internal Medicine Cardiovascular Disease
DX: I25.10 Atherosclerotic heart disease of native coronary artery without angina pectoris (principal); I71.9 Aortic aneurysm of unspecified site, without rupture; I10 Essential (primary) hypertension; E11.9 Type 2 diabetes mellitus without complications; Z79.84 Long term (current) use of oral hypoglycemic drugs; Z87.891 Personal history of nicotine dependence; Z79.02 Long term (current) use of antithrombotics/antiplatelets; Z79.899 Other long term (current) drug therapy; Z79.82 Long term (current) use of aspirin; Z80.9 Family history of malignant neoplasm, unspecified; Z82.3 Family history of stroke
CPT/HCPCS: 36415; 80053; 80061; 85027; 85610; 85730; 87081; 93005; 93458

== ENCOUNTER → 2019-12-07 | Outpatient (CLI) | payer OTHER ==
[~2019-12-07] MED LIST changes: +CHOL200078 PO; +FENO54TA PO; -HEParin (CATH LAB) 2,000 ML IV ONE; +HOLD METFORMIN - RECEIVED CONTRAST 20 ML VIAL IV SCH; +IOHEXOL 350 MG/ML 150 ML (OMNIPAQUE 350) VIAL IV ONE; -LIDOCAINE 1% INJ 20 ML 20 ML VIAL ONE; +LISI1TAB25 PO; +MELA5TAB21 PO; +NS 100 ML (IVPB) BAG IV ONE; -NS IV 1000 ML 1,000 ML ONE
--- NOTE | 2019-12-07 10:29 | Diagnostic Imaging Report ---
PROCEDURE: CT angiography of the chest with contrast. TECHNIQUE: Multiple contiguous axial images were obtained through the chest after uneventful bolus administration of intravenous contrast. 3D reconstructed CTA MIP acquisitions were also performed. Auto Exposure Controls were utilized during the CT exam to meet ALARA standards for radiation dose reduction. INDICATION: Coronary artery disease, aortic root enlargement. The previous CTA chest exam 05/29/2017 noted that the aortic root was dilated. On the coronal images of the prior exam, the aortic root measured approximate 4.5 cm in maximum dimension (normal 4 cm or less). On the coronal images of this exam the aortic root does not seem to have changed significantly in size. There are still no evidence for an aneurysm of the ascending or descending aorta and there is no sign of a dissection. There is no defect within the pulmonary arteries to indicate a pulmonary embolus. The heart is enlarged but stable. Coronary artery calcifications are again noted. The lungs are generally clear and well aerated. There is no evidence for failure, pneumonia or for a pleural effusion to indicate an acute abnormality. There is no mediastinal or hilar adenopathy. The thyroid gland is obscured by artifact but seems similar to the prior study. The sections through the upper abdomen again shows that the liver is prominent and of lower density than usually seen. This does suggest fatty metamorphosis. There is no acute abnormality upper abdomen. The bone windows are unremarkable for fracture or for destructive lesion. IMPRESSION: 1. There is no evidence for an acute cardiopulmonary abnormality. 2. The aortic root remains dilated but is virtually unchanged when compared to the prior exam. There still no evidence for an aneurysm of the ascending or descending thoracic aorta. 3. There is cardiomegaly and coronary disease. Dictated by: Dictated on workstation # [id number]
== END ==
LOC: RAD 09:25
PROVIDERS: ATTEND Internal Medicine Cardiovascular Disease
DX: I25.10 Atherosclerotic heart disease of native coronary artery without angina pectoris (principal); I77.89 Other specified disorders of arteries and arterioles; E11.9 Type 2 diabetes mellitus without complications; I11.9 Hypertensive heart disease without heart failure
CPT/HCPCS: 71275